=== PATIENT | male | born 1930 | race Caucasian/White ===

== ENCOUNTER → 2016-06-12 | Outpatient (CLI) | payer OTHER ==
[~2016-06-12] MED LIST: AMB5 PO; ASPEC81 PO; CLB200 PO; ENOX30IN4 SQ; FINA5TAB PO; FLM4 PO; LOVA40TA4 PO; LRT5 PO; OMEP40CA PO; POTA-327 PO; PSYL55.43; TELM80TA4 PO
[2016-06-12 13:35] LABS: ALT/SGPT 19 U/L (12-78); BLOOD UREA NITROGEN 18 mg/dl (7-18); BUN/CREATININE RATIO 16.5 (10-20); CALCIUM 8.4 mg/dl (8.5-10.1); CARBON DIOXIDE 30 mmol/L (21-32); CHLORIDE 95 mmol/L (98-107); CHOLESTEROL 139 mg/dl (0-200); GLUCOSE 92 mg/dl (70-99); POTASSIUM 3.5 mmol/L (3.5-5.1); SODIUM 133 mmol/L (136-145); TRIGLYCERIDES 90 mg/dl (0-150); VERY LOW DENSITY LIPOPROT CALC 18 mg/dl
[2016-06-12 13:38] LABS: AST/SGOT 18 U/L (15-37); HDL CHOLESTEROL 46 mg/dl; LDL CHOLESTEROL CALCULATED 75 mg/dl
[2016-06-12 13:48] LABS: ESTIMATED AVERAGE GLUCOSE 126 mg/dl; HA1C FLAG Normal (Normal)
== END | disposition home or self-care (01) ==
LOC: C.LABMFLN 09:02
PROVIDERS: ATTEND Family Medicine
DX: I10 Essential (primary) hypertension (principal); E78.00 Pure hypercholesterolemia, unspecified; R73.09 Other abnormal glucose

== ENCOUNTER → 2017-04-17 | Day surgery (SDC) | payer OTHER ==
[2017-04-11 11:25] VITALS: BMI 27.0
[~2017-04-17] VITALS: Ht 172.7 cm; Wt 81.8 kg
[~2017-04-17] MED LIST changes: +ACET-1256 PO; +ALBU18002 INH; -AMB5 PO; -ASPEC81 PO; +ASPI81TA28 PO; +CETI10TA84 PO; -CLB200 PO; -ENOX30IN4 SQ; -FLM4 PO; +FLUT0.15 INTNAS; +FLVHFA44 INH; +HYZ/10015 PO; +LIDOCAINE HCL 2% 2 ML VIAL (20MG/ML) ONE; -LRT5 PO; +METAMUCIL PO; +MISCCAP80 PO; -OMEP40CA PO; -POTA-327 PO; +POTA20TA16 PO; +PRLSR20 PO; +PROP0.6D OPB; +PROPOFOL IV EMULSION 10 MG/ML 20 ML VIAL IV ONE; -PSYL55.43; +TAMS0.4C38 PO; -TELM80TA4 PO; +TRAZ50TA35 PO
[2017-04-17 13:38] VITALS: Ht 172.7 cm; Wt 81.8 kg
[2017-04-17 14:00] VITALS: TEMP 36.4
--- NOTE | 2017-04-17 14:21 | Endo History and Physical ---
History & Physical Date of Service: Apr 17, 2017. Chief Complaint: HX POLYPS Referring Physician: DR. DELEON History of Present Illness For colonoscopy Past Surgical History Hx Internal Defibrillator: No Hx Pacemaker: No Hx Abdominal Surgery: No Hx of Implantable Prosthesis: No Hx Post-Op Nausea and Vomiting: No Hx Cancer Surgery: No Hx Thoracic Surgery: No Hx Urinary Tract Surgery: No Family History None Social History Smoking Status: Never Smoker Hx Substance Use: No Hx Alcohol Use: No Allergies Coded Allergies: Tetracycline (Verified Allergy, Unknown, rash, 04/17/17) Current Medications Reported Home Medications Medications Dose Route/Sig Max Daily Dose Days Date Category [Metamucil] 1 Dose PO HS 04/11/17 Reported Soothe (Propylene Glycol-Glycerin) 1 Atilio Atilio 1 Drop OPB PRN 04/11/17 Reported Trazodone (Trazodone HCl) 50 Mg Tab 50 Mg PO HS PRN 04/11/17 Reported Flomax (Tamsulosin Hcl) 0.4 Mg Cap 0.4 Mg PO QPM 04/11/17 Reported Probiotic (Probiotic Product) 1 Cap Cap 1 Tab PO DAILY 04/11/17 Reported Proair Respiclick (Albuterol Sulfate) 108 Mcg/Act Aer 2 Puffs INH PRN 04/11/17 Reported Prilosec (Omeprazole) 20 Mg Capcr 20 Mg PO DAILY 04/11/17 Reported Hyzaar 25MG/100MG (HCTZ/Losartan Potassium) Tab 1 Tab PO DAILY 04/11/17 Reported Klor-Con (Potassium Chloride) 20 Meq Tabcr 10 Meq PO DAILY 04/11/17 Reported Flonase Allergy Relief (Fluticasone Propionate (Nasal)) 50 Mcg/Act Spr 2 Sprays INTNAS DAILY 04/11/17 Reported Flovent Hfa (Fluticasone Propionate) 120 Puffs/5280 Mcg Aero 2 Puffs INH BID 30 04/11/17 Reported Zyrtec (Cetirizine HCl) 10 Mg Tab 10 Mg PO DAILY 04/11/17 Reported Aspirin Ec (Aspirin) 81 Mg Tab 81 Mg PO HS 04/11/17 Reported Proscar (Finasteride) 5 Mg Tab 5 Mg PO DAILY 02/07/11 Reported Mevacor (Lovastatin) 40 Mg Tab 40 Mg PO HS 02/07/11 Reported Vital Signs Weight (Kilograms): 81.82 Height (Feet): 5 Height (Inches): 8 Date Time Temp Pulse Resp B/P (MAP) Pulse Ox O2 Delivery O2 Flow Rate FiO2 04/17/17 14:00 36.4 66 20 167/92 (117) 98 Room Air Physical Exam General Appearance: WD/WN, + pertinent finding (decreased hearing) Respiratory/Chest: Respiratory effort: no dyspnea Cardiovascular: Heart Auscultation: RRR Abdomen: Inspection & Palpation: soft Assessment and Plan Hx polyps for colonoscopy
--- NOTE | 2017-04-17 14:51 | Discharge Instructions ---
Endoscopy Patient Instructions Date / Procedure(s) Performed Apr 17, 2017. Colonoscopy Allergy Information Coded Allergies: Tetracycline (Verified Allergy, Unknown, rash, 04/17/17) Discharge Date / Findings Apr 17, 2017. Diverticulosis, polyps removed Medication Instructions Restart Stopped Medication(s): resume meds Reported Home Medications Medications Dose Route/Sig Max Daily Dose Days Date Category [Metamucil] 1 Dose PO HS 04/11/17 Reported Soothe (Propylene Glycol-Glycerin) 1 Atilio Atilio 1 Drop OPB PRN 04/11/17 Reported Trazodone (Trazodone HCl) 50 Mg Tab 50 Mg PO HS PRN 04/11/17 Reported Flomax (Tamsulosin Hcl) 0.4 Mg Cap 0.4 Mg PO QPM 04/11/17 Reported Probiotic (Probiotic Product) 1 Cap Cap 1 Tab PO DAILY 04/11/17 Reported Proair Respiclick (Albuterol Sulfate) 108 Mcg/Act Aer 2 Puffs INH PRN 04/11/17 Reported Prilosec (Omeprazole) 20 Mg Capcr 20 Mg PO DAILY 04/11/17 Reported Hyzaar 25MG/100MG (HCTZ/Losartan Potassium) Tab 1 Tab PO DAILY 04/11/17 Reported Klor-Con (Potassium Chloride) 20 Meq Tabcr 10 Meq PO DAILY 04/11/17 Reported Flonase Allergy Relief (Fluticasone Propionate (Nasal)) 50 Mcg/Act Spr 2 Sprays INTNAS DAILY 04/11/17 Reported Flovent Hfa (Fluticasone Propionate) 120 Puffs/5280 Mcg Aero 2 Puffs INH BID 30 04/11/17 Reported Zyrtec (Cetirizine HCl) 10 Mg Tab 10 Mg PO DAILY 04/11/17 Reported Aspirin Ec (Aspirin) 81 Mg Tab 81 Mg PO HS 04/11/17 Reported Proscar (Finasteride) 5 Mg Tab 5 Mg PO DAILY 02/07/11 Reported Mevacor (Lovastatin) 40 Mg Tab 40 Mg PO HS 02/07/11 Reported Provider Instructions Activity Restrictions - No exercising or heavy lifting for 24 hours. - Do not drink alcohol the day of the procedure. - Do not drive a car or operate machinery until the day after the procedure. - Do not make any important decisions or sign important papers in 24 hours after the procedure. Following Day: - Return to full activity which may include returning to work/school. Diet Start your diet with liquids and light foods (jello, soup, juice, toast). Then eat your usual diet if not nauseated. Treatment For Common After Affects For mild abdominal pain, bloating, or excessive gas: - Rest - Eat lightly - Lie on right side Follow-Up Information Follow-up with DR. DELEON as scheduled Anesthesia Information What You Should Know You have had a procedure that required some medicine to reduce anxiety and discomfort. This treatment is called moderate sedation. After receiving the treatment, you may be sleepy, but you will be able to breathe on your own. The effects of the treatment may last for several hours. Follow these instructions along with Activity/Diet recommendations noted above: * Do NOT do anything where dizziness or clumsiness would be dangerous. * Rest quietly at home today, then you can be up and about tomorrow. * Have a responsible person stay with you the rest of today. * You may have had an I.V. today. If so, you may take the dressing off later today. Recommendations Call your doctor if: * Trouble breathing * Continuous vomiting for more than 24 hours * Temperature above 101 degrees * Severe abdominal pain or bloating * Pain not relieved by pain medicine ordered * There is increased drainage or redness from any incision * A large amount of rectal bleeding greater than 2-3 tablespoons. (If you had a polyp/s removed or have hemorrhoids, a small amount of blood - from the rectum is to be expected.) * You have any unanswered questions or concerns. IN THE EVENT OF A SERIOUS EMERGENCY, GO TO THE NEAREST EMERGENCY ROOM Your discharge instructions were prepared by provider Karan Juarez. Patient Instructions Signature Page Evens Dias Patient (or Guardian) Signature/Date: I have read and understand the instructions given to me by my caregivers. Caregiver/RN/Doctor Signature/Date: The above-named patient and/or guardian has received patient instructions on this date. + Original Patient Signature Page (only) stays with chart. Please make copy for patient.
--- NOTE | 2017-04-17 14:54 | GI REPORT ---
Procedure Date: 04/17/2017 2:26 PM Procedure: Colonoscopy Indications: Personal history of colonic polyps Medicines: Propofol total dose 200 mg IV, Lidocaine 40 mg IV Complications: No immediate complications. Estimated Blood Loss: Estimated blood loss was minimal. Procedure: Pre-Anesthesia Assessment: - Prior to the procedure, a History and Physical was performed, and patient medications, allergies and sensitivities were reviewed. The patient's tolerance of previous anesthesia was reviewed. - The risks and benefits of the procedure and the sedation options and risks were discussed with the patient. All questions were answered and informed consent was obtained. After I obtained informed consent, the scope was passed under direct vision. Throughout the procedure, the patient's blood pressure, pulse, and oxygen saturations were monitored continuously. The scope was introduced through the anus and advanced to the cecum, identified by appendiceal orifice and ileocecal valve. The colonoscopy was somewhat difficult due to significant looping. Successful completion of the procedure was aided by applying abdominal pressure. The patient tolerated the procedure well. The quality of the bowel preparation was good. Findings: Multiple diverticula were found in the entire colon. A 4 mm polyp was found in the transverse colon. The polyp was sessile. The polyp was removed with a cold snare. Resection and retrieval were complete. To prevent bleeding post-intervention, one hemostatic clip was successfully placed (MR conditional). There was no bleeding during, and at the end, of the procedure. A 6 mm polyp was found in the cecum. The polyp was sessile. The polyp was removed with a hot snare. Resection and retrieval were complete. Estimated blood loss: none. Impression: - Diverticulosis in the entire examined colon. - One 4 mm polyp in the transverse colon, removed with a cold snare. Resected and retrieved. Clip (MR conditional) was placed. - One 6 mm polyp in the cecum, removed with a hot snare. Resected and retrieved. Recommendation: - Discharge patient to home (ambulatory). - Continue present medications. - Await pathology results. - Return to primary care physician PRN. Karan Juarez M.D. Karan Juarez MD 04/17/2017 2:54:23 PM This report has been signed electronically. Note Initiated On: 04/17/2017 2:26 PM I attest to the content of the Intraoperative Record and orders documented therein, exceptions below
--- NOTE | 2017-04-17 15:06 | Anesthesiology Progress Note ---
Anesthesia Post Op Note Date & Time Apr 17, 2017 at 15:06 Vital Signs Pain Intensity: 0 Vital Signs Past 12 Hours Date Time Temp Pulse Resp B/P (MAP) Pulse Ox O2 Delivery O2 Flow Rate FiO2 04/17/17 14:55 60 16 132/60 (84) 96 Room Air 04/17/17 14:00 36.4 66 20 167/92 (117) 98 Room Air Notes Mental Status: alert / awake / arousable, participated in evaluation Pt Amnestic to Procedure: Yes Nausea / Vomiting: adequately controlled Pain: adequately controlled Airway Patency, RR, SpO2: stable & adequate BP & HR: stable & adequate Hydration State: stable & adequate Anesthetic Complications: no major complications apparent
[2017-04-17 15:25] VITALS: BP 164/82; PULSE 56; O2SAT 97
== END | disposition home or self-care (01) ==
LOC: C.GI 13:24
PROVIDERS: ATTEND Internal Medicine Gastroenterology
DX: Z12.11 Encounter for screening for malignant neoplasm of colon (principal); D12.0 Benign neoplasm of cecum; D12.3 Benign neoplasm of transverse colon; K57.30 Diverticulosis of large intestine without perforation or abscess without bleeding; Z83.71 Family history of colonic polyps; Z79.82 Long term (current) use of aspirin; Z79.899 Other long term (current) drug therapy

== ENCOUNTER → 2017-07-17 | Outpatient (CLI) | payer OTHER ==
[~2017-07-17] MED LIST changes: -ACET-1256 PO; -LIDOCAINE HCL 2% 2 ML VIAL (20MG/ML) ONE; -PROPOFOL IV EMULSION 10 MG/ML 20 ML VIAL IV ONE
[2017-07-17 18:26] LABS: ALT/SGPT 20 U/L (12-78); AST/SGOT 19 U/L (15-37); BLOOD UREA NITROGEN 18 mg/dl (7-18); CALCIUM 9.1 mg/dl (8.5-10.1); CARBON DIOXIDE 31 mmol/L (21-32); CREATININE 0.95 mg/dl (0.60-1.40); GLUCOSE 96 mg/dl (70-99); SODIUM 132 mmol/L (136-145)
[2017-07-17 18:31] LABS: CHOLESTEROL 166 mg/dl (0-200); LDL CHOLESTEROL CALCULATED 100 mg/dl
== END | disposition home or self-care (01) ==
LOC: C.LABMFLN 11:39
PROVIDERS: ATTEND Family Medicine
DX: R97.20 Elevated prostate specific antigen [PSA] (principal); I10 Essential (primary) hypertension; E78.00 Pure hypercholesterolemia, unspecified